=== PATIENT | female | born 1970 | race Asian ===

== ENCOUNTER 2019-07-09 15:28 | Emergency (ER) | payer OTHER ==
[~2019-07-09] VITALS: Ht 177.8 cm; Wt 84.8 kg
[2019-07-09 15:57] VITALS: BP 102/79; Ht 177.8 cm; Wt 84.8 kg
== END 2019-07-09 18:10 | disposition home or self-care (01) ==
LOC: ED 15:28
DX: J06.9 Acute upper respiratory infection, unspecified (principal); J00 Acute nasopharyngitis [common cold]
CPT/HCPCS: 87804